=== PATIENT | female | born 1990 | race Caucasian/White ===

== ENCOUNTER → 2024-10-06 09:59 | Outpatient (REF) | payer BC, SELFPAY | LOC: WDC 09:59 | PROVIDERS: ATTENDING PHYSICIAN Obstetrics & Gynecology Gynecology; FAMILY PHYSICIAN Family Medicine; REFERRING PHYSICIAN Nurse Practitioner Adult Health | DX: N63.20 Unspecified lump in the left breast, unspecified quadrant (principal) | CPT/HCPCS: 76642; 77062; 77066 ==